=== PATIENT | male | born 1960 | race Caucasian/White ===

== ENCOUNTER 2018-12-11 06:43 | Day surgery (SDC) | payer OTHER ==
[~2018-12-11] VITALS: Ht 180.3 cm; Wt 101.7 kg
[~2018-12-11 06:43] MED LIST: Bactrim Ds Tab1 EACH PO; Keflex500 MG PO
--- NOTE | 2018-12-11 08:59 | NUR ---
Ambulatory in Day SurgeryPatient states colon prep results clear. History, Chart, Medications and Allergies reviewed before start of procedure.Lungs clear T/O to Auscultation. Patient confirms NPO status and agrees with scheduled surgery. Pre-Op teaching done. Pt verbalizes understanding.
--- NOTE | 2018-12-11 09:54 | NUR ---
12/11/18 0954 Joey Soriano History, Chart, Medications and Allergies reviewed before start of procedure.MONITOR INTACT WITH CONTINUOUS PULSE OXIMETRY AND INTERMITTENT BP.3-LEAD EKG REVIEWED WITH PHYSICIAN PRIOR TO START OF PROCEDURE.O2 VIA N/C INTACT THROUGHOUT SEDATION/PROCEDURE. Patient confirms NPO status and agrees with scheduled surgery.PATIENT DETERMINED TO BE ASA APPROPRIATE FOR PROPOFOL SEDATION PRIOR TO START OF PROCEDURE BY DR. MCKEON.
--- NOTE | 2018-12-11 10:48 | NUR ---
Patient States Post-Procedure ride home has been arranged. Discharge instructions reviewed with patient. Patient verbalizes understanding. Copy given to patient to take home. Discharged via wheelchair to private car for ride home.
== END 2018-12-11 10:50 | disposition home or self-care (01) ==
LOC: ORSCMMR 06:43 → SURS 08:09 → ORD 09:30 → ORSCMMR 09:30
PROVIDERS: Internal Medicine Gastroenterology
PROC: 0DBN8ZX Excision of Sigmoid Colon, Via Natural or Artificial Opening Endoscopic, Diagnostic (ICD-10-PCS; principal; 2018-12-11 09:30)
PROC: 0DBH8ZX Excision of Cecum, Via Natural or Artificial Opening Endoscopic, Diagnostic (ICD-10-PCS; principal; 2018-12-11 09:30)
PROC: 0DBM8ZX Excision of Descending Colon, Via Natural or Artificial Opening Endoscopic, Diagnostic (ICD-10-PCS; principal; 2018-12-11 09:30)
DX: Z12.11 Encounter for screening for malignant neoplasm of colon (principal); K63.5 Polyp of colon; D12.4 Benign neoplasm of descending colon; K64.4 Residual hemorrhoidal skin tags
CPT/HCPCS: 88305; J2704; J7120

== ENCOUNTER 2023-12-30 10:48 | Emergency (ER) | payer OTHER ==
[~2023-12-30] VITALS: Ht 182.9 cm; Wt 104.3 kg
[2023-12-30] MEDS ORDERED: Ketorolac Tromethamine 10 MG Tab PO ONE (11:35)
[2023-12-30] MEDS ORDERED: Propofol 10mg/ml 20 ml Vial (Procedural) IV SCH (14:30)
[2023-12-30] MEDS ORDERED: FentaNYL Citrate 50 MCG/ML 2 ML Injection IV ONE (14:30)
[2023-12-30] MEDS ORDERED: NS 1,000 ML IV SCH (14:40)
[2023-12-30] MEDS ORDERED: Ketorolac Tromethamine 30mg Vial IV ONE (15:15)
[2023-12-30] MEDS ORDERED: OXAYDO5 M1 PO (16:25)
[2023-12-30 16:45] VITALS: BP 125/105
== END 2023-12-30 16:52 | disposition home or self-care (01) ==
LOC: ER 10:48
DX: S52.572A Other intraarticular fracture of lower end of left radius, initial encounter for closed fracture (principal); S52.601A Unspecified fracture of lower end of right ulna, initial encounter for closed fracture; W18.09XA Striking against other object with subsequent fall, initial encounter
CPT/HCPCS: 25565; 73090; 73100; 76000; 93005; 93010; 96374-59; 99152; 99153; 99283-25; A9270; J1885; J2704; J3010; J7030

== ENCOUNTER 2024-01-17 12:17 | Day surgery (SDC) | payer OTHER ==
[~2024-01-17] VITALS: Ht 180.3 cm; Wt 105.5 kg
[2024-01-17 16:00] VITALS: BP 133/65
== END 2024-01-17 22:45 | disposition home or self-care (01) ==
LOC: ORSCMMR 12:17 → SDS 12:17 → ORSCMMR 19:30 → ORD 19:30 → SDS 22:45
PROC: 0PSJ04Z Reposition Left Radius with Internal Fixation Device, Open Approach (ICD-10-PCS; principal; 2024-01-17)
DX: S52.572A Other intraarticular fracture of lower end of left radius, initial encounter for closed fracture (principal); X58.XXXA Exposure to other specified factors, initial encounter